=== PATIENT | female | born 1940 | race Caucasian/White ===

== ENCOUNTER 2021-01-12 14:05 | Day surgery (SDCO) | payer OTHER ==
[~2021-01-12 14:05] MED LIST: ARICEPT 5MG TABL5 MG PO; ASPIRIN CHEWABL81 MG PO; CATAPRES0.1 MG PO; COREG 3.125M3.125 MG PO; DICLOFENAC POTA50 MG PO; HYZAAR 50-12.51 EACH PO; METFORMIN HCL500 MG PO; MOBIC7.5 MG PO; NEURONTIN100 MG PO; STOOL SOFTENER100 MG PO; SYNTHROID75 MCG PO; TIMOPTIC 0.5%1 EACH OU; TOPROL XL 25MG25 MG PO; VIBRAMYCIN100 MG PO; ZOCOR40 MG PO; ZOFRAN4 MG PO; ZOFRAN8 MG PO
[2021-01-12 16:56] LABS: BASOPHIL 0.5 % (0-2); EOSINOPHIL 3.5 % (0-7); HCT 42.9 % (37.0-47.0); HGB 14.2 g/dl (12.5-16.0); LYMPHOCYTE 19.2 % (15-48); MCH 30.3 pg (25.0-31.0); MCHC 33.1 g/dL (32.0-36.0); MCV 91.7 fL (78.0-100.0); MONOCYTE 9.8 % (0-12); MPV 11.3 fL (6.0-9.5); NEUTROPHIL 66.3 % (41-80); NRBC 0; PLT 233 K/uL (150-400); RBC 4.68 M/uL (4.20-5.40); RDW 13.2 % (11.5-14.0); WBC 10.8 K/uL (4.0-10.5)
[2021-01-12 17:10] LABS: ALBUMIN 3.7 g/dL (3.4-5.0); BILIRUBIN - TOTAL 0.7 mg/dL (0.2-1.0); BUN/CREAT RATIO (CALC) 22.1 RATIO; CREATININE 0.77 mg/dL (0.51-0.95); GLOBULIN (CALCULATION) 3.2 g/dL; POTASSIUM 4.1 mmol/L (3.5-5.1); TOTAL PROTEIN 6.9 g/dL (6.4-8.2)
[2021-01-12 18:06] LABS: INR 1.11 (0.9-1.2); PROTHROMBIN TIME 13.6 SECONDS (11.4-13.6)
[2021-01-12] MEDS ORDERED: VITAMIN B-121000 MCG PO (23:11)
[2021-01-12] MEDS ORDERED: NAMENDA 10MG TA10 MG PO (23:11)
[2021-01-13 05:46] LABS: BASOPHIL 0.8 % (0-2); EOSINOPHIL 4.4 % (0-7); HCT 38.4 % (37.0-47.0); HGB 12.8 g/dl (12.5-16.0); LYMPHOCYTE 22.1 % (15-48); MCH 30.1 pg (25.0-31.0); MCHC 33.3 g/dL (32.0-36.0); MCV 90.4 fL (78.0-100.0); MONOCYTE 10.7 % (0-12); MPV 10.4 fL (6.0-9.5); NEUTROPHIL 61.5 % (41-80); NRBC 0; PLT 198 K/uL (150-400); RBC 4.25 M/uL (4.20-5.40); RDW 13.2 % (11.5-14.0); WBC 9.3 K/uL (4.0-10.5)
[2021-01-13 06:28] LABS: BILIRUBIN - TOTAL 0.6 mg/dL (0.2-1.0); BUN/CREAT RATIO (CALC) 25.8 RATIO; CREATININE 0.62 mg/dL (0.51-0.95); GLOBULIN (CALCULATION) 2.8 g/dL; POTASSIUM 3.9 mmol/L (3.5-5.1); TOTAL PROTEIN 5.8 g/dL (6.4-8.2)
--- NOTE | 2021-01-13 14:24 | NUR ---
PT DISCHARGED VIA WHEELCHAIR WITH . PT INSRUCTIONS GIVEN AND VERBALIZES UNDERSTANDING. IV REMOVED, TELE REMOVED
== END 2021-01-13 14:50 | disposition home or self-care (01) ==
LOC: FER 14:05 → FTCU 20:22
PROVIDERS: Emergency Medicine; Nurse Practitioner; ADMIT Internal Medicine
DX: R07.89 Other chest pain (principal); I10 Essential (primary) hypertension; E11.9 Type 2 diabetes mellitus without complications; E78.5 Hyperlipidemia, unspecified; E03.9 Hypothyroidism, unspecified; I25.2 Old myocardial infarction; I25.810 Atherosclerosis of coronary artery bypass graft(s) without angina pectoris; F03.90 Unspecified dementia, unspecified severity, without behavioral disturbance, psychotic disturbance, mood disturbance, and anxiety; R00.1 Bradycardia, unspecified; M19.90 Unspecified osteoarthritis, unspecified site; Z79.84 Long term (current) use of oral hypoglycemic drugs; Z98.61 Coronary angioplasty status; Z90.49 Acquired absence of other specified parts of digestive tract; Z98.51 Tubal ligation status; Z98.49 Cataract extraction status, unspecified eye; Z87.448 Personal history of other diseases of urinary system; Z20.822 Contact with and (suspected) exposure to COVID-19; Z88.8 Allergy status to other drugs, medicaments and biological substances; Z88.2 Allergy status to sulfonamides; Z87.19 Personal history of other diseases of the digestive system; Z86.69 Personal history of other diseases of the nervous system and sense organs; Z79.899 Other long term (current) drug therapy
CPT/HCPCS: 36415; 71045; 80053; 80061; 83036; 84439; 84443; 84484; 85025; 85610; 93005; G0378; U0002

== ENCOUNTER 2021-04-11 06:35 | Emergency (ER) | payer OTHER ==
[~2021-04-11] VITALS: Ht 147.3 cm; Wt 61.2 kg
[~2021-04-11 06:35] MED LIST changes: +NAMENDA 10MG TA10 MG PO; +VITAMIN B-121000 MCG PO
[2021-04-11 08:24] LABS: BASOPHIL 0.7 % (0-2); EOSINOPHIL 5.3 % (0-7); HCT 37.6 % (37.0-47.0); HGB 12.3 g/dl (12.5-16.0); LYMPHOCYTE 13.8 % (15-48); MCHC 32.7 g/dL (32.0-36.0); MCV 94.7 fL (78.0-100.0); MONOCYTE 7.7 % (0-12); MPV 10.7 fL (6.0-9.5); NEUTROPHIL 72.2 % (41-80); NRBC 0; PLT 207 K/uL (150-400); RBC 3.97 M/uL (4.20-5.40); RDW 13.2 % (11.5-14.0); WBC 10.7 K/uL (4.0-10.5)
[2021-04-11 08:39] LABS: INR 1.02 (0.9-1.2); PROTHROMBIN TIME 12.7 SECONDS (11.4-13.6)
[2021-04-11 08:52] LABS: ALBUMIN 3.2 g/dL (3.4-5.0); BILIRUBIN - TOTAL 0.3 mg/dL (0.2-1.0); BUN/CREAT RATIO (CALC) 37.1 RATIO; CREATININE 0.62 mg/dL (0.51-0.95); GLOBULIN (CALCULATION) 3.4 g/dL; TOTAL PROTEIN 6.6 g/dL (6.4-8.2)
== END 2021-04-11 15:10 | disposition other institution (70) ==
LOC: FER 06:35
PROVIDERS: Emergency Medicine
DX: I21.4 Non-ST elevation (NSTEMI) myocardial infarction (principal); R55 Syncope and collapse; R79.89 Other specified abnormal findings of blood chemistry; I25.2 Old myocardial infarction; E11.9 Type 2 diabetes mellitus without complications; I10 Essential (primary) hypertension; Z88.2 Allergy status to sulfonamides; Z88.8 Allergy status to other drugs, medicaments and biological substances; Z20.822 Contact with and (suspected) exposure to COVID-19
CPT/HCPCS: 36415; 71045; 80053; 84443; 84484; 85025; 85610; 85730; 93005; J1644; U0002

== ENCOUNTER 2021-06-04 17:06 | Emergency (ER) | payer OTHER ==
[2021-06-04 18:58] LABS: BASOPHIL 0.9 % (0-2); EOSINOPHIL 6.3 % (0-7); HCT 40.1 % (37.0-47.0); HGB 12.9 g/dl (12.5-16.0); LYMPHOCYTE 26.3 % (15-48); MCH 30.1 pg (25.0-31.0); MCHC 32.2 g/dL (32.0-36.0); MCV 93.7 fL (78.0-100.0); MONOCYTE 10.5 % (0-12); MPV 10.6 fL (6.0-9.5); NEUTROPHIL 55.8 % (41-80); NRBC 0; PLT 204 K/uL (150-400); RBC 4.28 M/uL (4.20-5.40); RDW 12.4 % (11.5-14.0); WBC 8.1 K/uL (4.0-10.5)
[2021-06-04 19:11] LABS: BILIRUBIN NEGATIVE (NEGATIVE); BLOOD 3+ Ery/uL (NEGATIVE); COLOR YELLOW (YELLOW); GLUCOSE (U) NORMAL (NORMAL); LEUKOCYTES 1+ Leu/uL (NEGATIVE); NITRITE NEGATIVE (NEGATIVE); PROTEIN NEGATIVE (NEGATIVE); UROBILINOGEN 0.2 mg/dL (0.2-1.0)
[2021-06-04 19:20] LABS: CLARITY SLIGHTLY HAZY (CLEAR)
[2021-06-04 19:25] LABS: ALBUMIN 3.6 g/dL (3.4-5.0); BILIRUBIN - TOTAL 0.5 mg/dL (0.2-1.0); CREATININE 0.6 mg/dL (0.51-0.95); GLOBULIN (CALCULATION) 3.1 g/dL; POTASSIUM 4.1 mmol/L (3.5-5.1); TOTAL PROTEIN 6.7 g/dL (6.4-8.2)
[2021-06-04 19:37] LABS: BACTERIA TRACE; SQUAMOUS EPITHELIAL CELLS RARE; TRANSITIONAL EPITHELIAL CELLS RARE
== END 2021-06-04 20:10 | disposition home or self-care (01) ==
LOC: FER 17:06
PROVIDERS: Emergency Medicine Emergency Medical Services
DX: I10 Essential (primary) hypertension (principal); E11.9 Type 2 diabetes mellitus without complications; E78.5 Hyperlipidemia, unspecified; Z79.82 Long term (current) use of aspirin; Z79.02 Long term (current) use of antithrombotics/antiplatelets; Z88.2 Allergy status to sulfonamides; Z88.7 Allergy status to serum and vaccine; Z88.8 Allergy status to other drugs, medicaments and biological substances
CPT/HCPCS: 36415; 80053; 81001; 84484; 85025; 93005